=== PATIENT | female | born 1945 | race Caucasian/White ===

== ENCOUNTER → 2019-03-10 | Emergency (ER) | payer OTHER ==
[~2019-03-10] VITALS: Ht 152.4 cm; Wt 88.5 kg
[~2019-03-10] MED LIST: VASOTEC20 M1; XANAX1 MG
== END | disposition home or self-care (01) ==
LOC: ER 19:17
DX: K29.60 Other gastritis without bleeding (principal); R40.4 Transient alteration of awareness